=== PATIENT | male | born 1935 | race Caucasian/White ===

== ENCOUNTER 2018-12-21 14:40 | Inpatient (IN) ==
--- NOTE | 2018-12-21 15:07 | ED ---
HPI General Chief complaint: Respiratory Symptoms Stated complaint: Abnormal Labs/Dr Sent Time Seen by Provider: 12/21/18 14:51 Source: patient Mode of arrival: wheelchair Limitations: no limitations History of Present Illness HPI narrative: 83 year old male with a past medical history of COPD, HTN, CHF, CAD s/p CABG x 2 presents to the ED for evaluation of progressively worsening shortness of breath. He states it started about 3 weeks ago and has gotten to the point now where he cannot even walk across a room without struggling to breathe. He reports that his abdomen feels bloated and his legs and feet have been swollen. He denies any pain in the abdomen or chest but states that his chest just feels "tight". He denies chest pain, numbness/tingling, abdominal pain, changes to bowel movements. He states that he takes a water pill daily but feels that often times he cannot pee. He is unaware of a BPH history but says it feels like it takes a long time for him to empty his bladder and that he rarely has a full stream. Patient states taking Coumadin for his atrial fibrillation. Related Data Home Medications Medication Instructions Recorded Confirmed carvedilol 25 mg PO BID 06/19/18 11/30/18 clonazepam 0.5 mg PO DAILY 06/19/18 11/30/18 hydrocodone-acetaminophen 1 tab PO Q6H PRN 06/19/18 11/30/18 losartan 25 mg PO DAILY 06/19/18 11/30/18 magnesium oxide 500 mg PO DAILY 06/19/18 11/30/18 mirtazapine 15 mg PO DAILY 06/19/18 11/30/18 montelukast 10 mg PO DAILY 06/19/18 11/30/18 potassium chloride 20 meq PO DAILY 06/19/18 11/30/18 torsemide 20 mg PO DAILY 06/19/18 11/30/18 trazodone 25 mg PO BID 06/19/18 11/30/18 warfarin 1.5 mg PO DAILY 06/19/18 11/30/18 fluticasone-vilanterol [Breo 1 inh INHALATION DAILY 06/20/18 11/30/18 Ellipta] Allergies Allergy/AdvReac Type Severity Reaction Status Date / Time adhesive Allergy Severe Rash Verified 11/30/18 07:30 Sulfa (Sulfonamide Allergy Severe UNKNOWN Verified 11/30/18 07:30 Antibiotics) Review of Systems ROS: all other systems reviewed are negative [facility] History History Provided By: Patient Medical History Medical History CHF (congestive heart failure) (Acute) HTN (hypertension) (Acute) Pacemaker (Acute) Surgical History Surgical History History of femoropopliteal bypass (Acute) Social History Social History Substance History: No History of Abuse Second Hand Smoke Exposure: No Smoking Status: Former smoker How Often Do You Have a Drink Containing Alcohol: 4 or more times a week Recent Travel in [facility] within the Last 8 Weeks: No Recent Out of Country Travel within the Last 8 Weeks: No Exam Narrative Exam Narrative: GENERAL: Well-appearing but in some mild respiratory distress SKIN: Focused skin assessment warm/dry. HEAD: Atraumatic. Normocephalic. EYES: Pupils equal and round. No scleral icterus. No injection or drainage. ENT: No nasal bleeding or discharge. Mucous membranes pink and moist. Tongue is midline. No Uvula deviation. NECK: Trachea midline. No JVD. CARDIOVASCULAR: Regular rate and rhythm. No murmur appreciated. RESPIRATORY: No accessory muscle use. Rales and crackles are in the lower lung hanson. Breath sounds equal bilaterally. GASTROINTESTINAL: Abdomen soft, non-tender, nondistended. Hepatic and splenic margins not palpable. MUSCULOSKELETAL: No obvious deformities. No clubbing. No cyanosis. Patient does have bilateral lower leg edema of 1 +. 2+ pulses bilaterally. Able to move the upper and lower extremities bilaterally. 2+ pulses bilaterally. NEUROLOGICAL: Awake and alert. No obvious cranial nerve deficits. Motor grossly within normal limits. Normal speech. PSYCHIATRIC: Appropriate mood and affect; insight and judgment normal. Course Initial Documented Vital Signs Temperature 97.3 F L 12/21/18 14:43 Pulse Rate 69 12/21/18 14:43 Respiratory Rate 22 12/21/18 14:43 Blood Pressure 152/71 H 12/21/18 14:43 Pulse Oximetry 91 L 12/21/18 14:43 Last Documented Vital Signs Temperature 97.3 F L 12/21/18 14:43 Pulse Rate 67 12/21/18 15:26 Respiratory Rate 20 12/21/18 15:26 Blood Pressure 157/88 H 12/21/18 15:26 Pulse Oximetry 96 12/21/18 15:26 Medical Decision Making MDM Narrative Medical decision making narrative: 83-year-old male who presents to the ED for evaluation of possible CHF exacerbation. Labs and imaging were ordered. Labs and imaging showed appears to be CHF exacerbation. Positive troponin. Case was discussed with my attending who recommends admission. Case discussed with Dr. Corbett who agrees admission to his service. Patient agrees with admission. Patient was given Lasix here. Medical Screen Exam Complete: Yes Emergency Medical Condition: Yes Differential Diagnosis Differential Diagnosis: Exertional dyspnea versus CHF exacerbation versus CHF versus ACS versus COPD Medical Records Medical records reviewed: Yes I reviewed the patient's medical records. Lab Data Lab results reviewed: Yes I reviewed the patient's lab results. Result diagrams: 12/21/18 15:42 12/21/18 15:42 Lab Results 12/21/18 12/21/18 12/21/18 Range/Units 15:42 15:42 15:42 WBC 6.3 (4.0-11.0) th/mm3 RBC 4.45 L (4.50-5.90) mil/mm3 Hgb 15.1 (13.0-17.0) gm/dL Hct 44.8 (39.0-51.0) % MCV 100.7 H (80.0-100.0) fL MCH 33.9 (27.0-34.0) pg MCHC 33.7 (32.0-36.0) % RDW 16.9 (11.6-17.2) % Plt Count 182 (150-450) th/mm3 MPV 8.8 (7.0-11.0) fL Neut % (Auto) 73.8 H (16.0-70.0) % Lymph % (Auto) 17.3 (9.0-44.0) % [place] % (Auto) 6.9 (0.0-8.0) % Eos % (Auto) 1.1 (0.0-4.0) % Baso % (Auto) 0.9 (0.0-2.0) % Neut # (Auto) 4.6 (1.8-7.7) th/mm3 Lymph # (Auto) 1.1 (1.0-4.8) th/mm3 [place] # (Auto) 0.4 (0.0-0.9) th/mm3 Eos # (Auto) 0.1 (0.0-0.4) th/mm3 Baso # (Auto) 0.1 (0.0-0.2) th/mm3 WBC Differential . Differential Comment Auto diff final PT 21.0 H (9.8-11.6) sec INR 2.1 Ratio APTT (23.4-31.7) sec Sodium 136 (136-145) meq/L Potassium 4.4 (3.5-5.1) meq/L Chloride 98 (98-107) meq/L Carbon Dioxide 34.2 H (21.0-32.0) meq/L Anion Gap 4 L (5-15) meq/L BUN 28 H (7-18) mg/dL Creatinine 1.57 H (0.60-1.30) mg/dL Estimated GFR 43 L (>89) mL/min Random Glucose 108 H (74-106) mg/dL Calcium 8.8 (8.5-10.1) mg/dL Total Bilirubin 0.8 (0.2-1.0) mg/dL AST 19 (15-37) U/L ALT 30 (12-78) U/L Alkaline Phosphatase 89 (45-117) U/L Total Creatine Kinase 25 L (39-308) U/L Troponin I 0.08 H (0.02-0.05) ng/mL B-Natriuretic Peptide (0-100) pg/mL Total Protein 7.4 (6.4-8.2) g/dL Albumin 3.7 (3.4-5.0) g/dL 12/21/18 12/21/18 Range/Units 15:42 15:42 WBC (4.0-11.0) th/mm3 RBC (4.50-5.90) mil/mm3 Hgb (13.0-17.0) gm/dL Hct (39.0-51.0) % MCV (80.0-100.0) fL MCH (27.0-34.0) pg MCHC (32.0-36.0) % RDW (11.6-17.2) % Plt Count (150-450) th/mm3 MPV (7.0-11.0) fL Neut % (Auto) (16.0-70.0) % Lymph % (Auto) (9.0-44.0) % [place] % (Auto) (0.0-8.0) % Eos % (Auto) (0.0-4.0) % Baso % (Auto) (0.0-2.0) % Neut # (Auto) (1.8-7.7) th/mm3 Lymph # (Auto) (1.0-4.8) th/mm3 [place] # (Auto) (0.0-0.9) th/mm3 Eos # (Auto) (0.0-0.4) th/mm3 Baso # (Auto) (0.0-0.2) th/mm3 WBC Differential Differential Comment PT (9.8-11.6) sec INR Ratio APTT 31.1 (23.4-31.7) sec Sodium (136-145) meq/L Potassium (3.5-5.1) meq/L Chloride (98-107) meq/L Carbon Dioxide (21.0-32.0) meq/L Anion Gap (5-15) meq/L BUN (7-18) mg/dL Creatinine (0.60-1.30) mg/dL Estimated GFR (>89) mL/min Random Glucose (74-106) mg/dL Calcium (8.5-10.1) mg/dL Total Bilirubin (0.2-1.0) mg/dL AST (15-37) U/L ALT (12-78) U/L Alkaline Phosphatase (45-117) U/L Total Creatine Kinase (39-308) U/L Troponin I (0.02-0.05) ng/mL B-Natriuretic Peptide 576 H (0-100) pg/mL Total Protein (6.4-8.2) g/dL Albumin (3.4-5.0) g/dL Imaging Data Attestation: I personally reviewed and interpreted this imaging study as follows : Radiologist's impression: Chest X-Ray 12/21/18 15:04 CONCLUSION: 1. Cardiomegaly with pulmonary vascular engorgement. 2. Parenchymal opacity within the medial right lung base could relate to focal edema versus infectious infiltrate. ECG Data Attestation: I personally reviewed and interpreted this ECG as follows: Interpretation: EKG shows sinus rhythm with no sign of acute ischemia read by my attending and myself. Discharge Plan Discharge Disposition Patient Disposition: ED Admit(ED Internal Use Only) Discharge Order Discharge Orders: ED Use Only Admit Order (Routine); Ordered 12/21/18 Ordered By: Joe Perez Discharge Details Diagnosis: Acute exacerbation of CHF (congestive heart failure), Elevated troponin I level Physicians Team ED Provider: Oral Michelle ED Midlevel Provider: Joe Perez Primary Care Provider: Valente Addison Attending Provider: Caleb Corbett Discharge Interventions Interventions: Vital Signs Last Done: 12/21/18 15:26 Status ED Status: Admitted Observation Patient
--- NOTE | 2018-12-21 15:27 | XR ---
EXAM DATE: 12/21/2018 3:21 PM EST AGE/SEX: 83 years / Male INDICATIONS: Chest pain CLINICAL DATA: This is the patient's initial encounter. Patient reports that signs and symptoms have been present for 1 day and indicates a pain score of 0/10. MEDICAL/SURGICAL HISTORY: . Cardiovascular disease. Myocardial infarction. Chronic obstructive pulmonary disease. Congestive heart failure, asthma, Hypertension, diverticulitis . Cholecystecto my. Pacemaker. CABG COMPARISON: POI, XR CHEST PA AND LAT, 12/07/2018. . FINDINGS: A single AP view of the chest demonstrates significant cardiomegaly. Pulmonary vascular engorgement o bserved. A parenchymal opacity is seen within the medial right base. This is new from the prior study . Calcified pleural plaques are seen throughout the chest. No effusion observed. Median sternotomy wi res and left-sided pacing device noted. Old trauma involving the left clavicle. CONCLUSION: 1. Cardiomegaly with pulmonary vascular engorgement. 2. Parenchymal opacity within the medial right lung base could relate to focal edema versus infectio us infiltrate. Electronically signed by: Buddy Castaneda MD Board Certified Radiologist 12/21/2018 3:25 PM EST
[2018-12-21 16:02] LABS: Baso # (Auto) 0.1 th/mm3 (0.0-0.2); Baso % (Auto) 0.9 % (0.0-2.0); Eos # (Auto) 0.1 th/mm3 (0.0-0.4); Eos % (Auto) 1.1 % (0.0-4.0); Hematocrit 44.8 % (39.0-51.0); Hemoglobin 15.1 gm/dL (13.0-17.0); Lymph # (Auto) 1.1 th/mm3 (1.0-4.8); Lymph % (Auto) 17.3 % (9.0-44.0); Mean Corpuscular HGB Conc 33.7 % (32.0-36.0); Mean Corpuscular Hemoglobin 33.9 pg (27.0-34.0); Mean Corpuscular Volume 100.7 fL (80.0-100.0); Mean Platelet Volume 8.8 fL (7.0-11.0); Mono # (Auto) 0.4 th/mm3 (0.0-0.9); Mono % (Auto) 6.9 % (0.0-8.0); Neut # (Auto) 4.6 th/mm3 (1.8-7.7); Neut % (Auto) 73.8 % (16.0-70.0); Platelet Count 182 th/mm3 (150-450); Red Blood Count 4.45 mil/mm3 (4.50-5.90); Red Cell Distribution Width 16.9 % (11.6-17.2); White Blood Count 6.3 th/mm3 (4.0-11.0)
[2018-12-21 16:09] LABS: INR 2.1 Ratio
[2018-12-21 16:24] LABS: Alanine Aminotransferase 30 U/L (12-78); Albumin 3.7 g/dL (3.4-5.0); Anion Gap 4 meq/L (5-15); Aspartate Aminotransferase 19 U/L (15-37); Blood Urea Nitrogen 28 mg/dL (7-18); Calcium 8.8 mg/dL (8.5-10.1); Carbon Dioxide 34.2 meq/L (21.0-32.0); Chloride 98 meq/L (98-107); Glomerular Filtration Rate 43 mL/min (>89); Glucose,Random 108 mg/dL (74-106); Potassium 4.4 meq/L (3.5-5.1); Sodium 136 meq/L (136-145)
[2018-12-21 16:28] LABS: Alkaline Phosphatase 89 U/L (45-117); Total Protein 7.4 g/dL (6.4-8.2); Troponin I 0.08 ng/mL (0.02-0.05)
[2018-12-21 17:02] LABS: Creatine Kinase 25 U/L (39-308)
[2018-12-21] MEDS: Potassium Chloride 10 MEQ ER Capsule PO SCH (20:39)
[2018-12-21] MEDS: traZODone 50 MG Tablet PO SCH (20:39)
--- NOTE | 2018-12-21 21:02 | P.HPIM ---
History of Present Illness Primary Care Physician: Valente Addison DO 83-year-old male with a past medical history significant for CHF, CAD status post CABG, hypertension, hyperlipidemia and COPD (not on home oxygen) came to the emergency department for the evaluation of bilateral lower extremity edema and shortness of breath. The patient's anesthesia associate, Dr. Satya Quinones sent him in for further evaluation. The patient reports he initially started having shortness of breath 3 weeks ago. He reports the shortness of breath is continued to worsen and he can now no longer walk more than 10 steps before having to stop and rest. He endorses worsening bilateral lower extremity and states he has been eating a lot of processed food lately and has not been following his salt restriction. He was seen by his primary care provider who increased his torsemide but yesterday the dosing was decreased again secondary to acute kidney injury. The patient denies any chest pain. No abdominal pain. No nausea/vomiting/diarrhea. No fever/chills. No focal neurologic deficits. Review of Systems Review of Systems: all other systems reviewed are negative [facility] Medical History Medical History CHF (congestive heart failure) (Acute) COPD (chronic obstructive pulmonary disease) (Acute) Coronary artery disease (Acute) HTN (hypertension) (Acute) Hyperlipidemia (Acute) Pacemaker (Acute) Surgical History Surgical History History of cholecystectomy (Acute) History of coronary artery bypass graft (Acute) History of femoropopliteal bypass (Acute) History of repair of hiatal hernia (Acute) Family History Family History Other Coronary artery disease Social History Social History Substance History: No History of Abuse Second Hand Smoke Exposure: No Smoking Status: Former smoker How Often Do You Have a Drink Containing Alcohol: 4 or more times a week Recent Travel in [facility] within the Last 8 Weeks: No Recent Out of Country Travel within the Last 8 Weeks: No Immunization History Tetanus Immunization: Unsure Medications and Allergies Allergies Allergy/AdvReac Type Severity Reaction Status Date / Time adhesive Allergy Severe Rash Verified 11/30/18 07:30 Sulfa (Sulfonamide Allergy Severe UNKNOWN Verified 11/30/18 07:30 Antibiotics) Home Medications Medication Instructions Recorded Confirmed Type carvedilol 25 mg PO BID 06/19/18 12/21/18 History clonazepam 0.5 mg PO DAILY 06/19/18 12/21/18 History hydrocodone-acetaminophen 1 tab PO Q6H PRN 06/19/18 12/21/18 History losartan 25 mg PO DAILY 06/19/18 12/21/18 History magnesium oxide 500 mg PO DAILY 06/19/18 12/21/18 History mirtazapine 30 mg PO HS 06/19/18 12/21/18 History montelukast 10 mg PO DAILY 06/19/18 12/21/18 History potassium chloride 20 meq PO DAILY 06/19/18 12/21/18 History torsemide 20 mg PO DAILY 06/19/18 12/21/18 History trazodone 12.5 mg PO BID 06/19/18 12/21/18 History warfarin 1 mg PO DAILY 06/19/18 12/21/18 History fluticasone-vilanterol [Breo 1 inh INHALATION DAILY 06/20/18 12/21/18 History Ellipta] Active Medications: Active Medications Hydrocodone Bitart/Acetaminophen ([place] 5/325) 1 tab PO Q6H PRN PRN Reason: Pain 1-10 Bumetanide (Bumex Inj) 1 mg IV.PUSH BID@0900,1800 [facility] Clonazepam (Klonopin) 0.5 mg PO DAILY [facility] Fluticasone/Vilanterol (Breo Ellipta 200/25 Mcg Inh) 1 puff INH DAILY [facility] Losartan Potassium (Cozaar) 25 mg PO DAILY [facility] Potassium Chloride (Kcl) 10 meq PO BID [facility] Last Admin: 12/21/18 20:39 Dose: 10 meq Sodium Chloride (Ns Flush) 2 ml IV.FLUSH UNSCH PRN PRN Reason: FLUSH AFTER USING IV ACCESS Sodium Chloride (Ns Flush) 2 ml IV.FLUSH BID [facility] Last Admin: 12/21/18 20:40 Dose: 2 ml Trazodone HCl (Desyrel) 25 mg PO BID [facility] Last Admin: 12/21/18 20:39 Dose: 25 mg Warfarin Sodium (Coumadin) 1.5 mg PO DAILY [facility] Physical Exam Vital signs: Vital Signs 12/21/18 14:43 12/21/18 15:04 12/21/18 15:26 Temperature 97.3 F L Pulse Rate 69 67 Respiratory Rate 22 20 Blood Pressure 152/71 H 157/88 H Pulse Oximetry 91 L 95 96 12/21/18 17:32 Temperature Pulse Rate 60 Respiratory Rate 16 Blood Pressure 144/84 H Pulse Oximetry 94 L Intake & Output 12/21/18 12/21/18 12/22/18 06:59 18:59 06:59 Output Total 700 / 700 Balance -700 / -700 Weight 95.26 kg 95.26 kg Output: Urine 700 / 700 Other: Weight On Admission 95.26 kg Narrative: Gen.: No acute distress Head: Normocephalic. Atraumatic. EENT: Pupils equal round and reactive to light. Nose without drainage. Airway intact. Throat without injection. Cardiovascular: Regular rate and rhythm. No murmurs, rubs or gallops. Respiratory: Crackles in the bases Abdomen: Soft, nontender, nondistended. No peritoneal signs. Musculoskeletal: 2+ bilateral pitting lower extremity edema Skin: No obvious rashes or erythema. Neuro: Sensory and motor grossly intact. Cranial nerves II through XII grossly intact. Results Labs CBC & Chem 7: 12/21/18 15:42 12/21/18 15:42 Imaging Impressions Chest X-Ray 12/21/18 15:04 CONCLUSION: 1. Cardiomegaly with pulmonary vascular engorgement. 2. Parenchymal opacity within the medial right lung base could relate to focal edema versus infectious infiltrate. Caprini VTE Risk Assessment Caprini VTE Risk Assessment: Moderate/High Risk (score >= 2) Caprini Risk Assessment Model: Point Value = 1 Point Value = 2 Point Value = 3 Point Value = 5 Age 41-60 Minor surgery BMI > 25 kg/m2 Swollen legs Varicose veins or History of unexplained or recurrent spontaneous Oral contraceptives or hormone replacement Sepsis (< 1 month) Serious lung disease, including pneumonia (< 1 month) Abnormal pulmonary function Acute myocardial infarction Congestive heart failure (< 1 month) History of inflammatory bowel disease Medical patient at bed rest Age 61-74 Arthroscopic surgery Major open surgery (> 45 min) Laparoscopic surgery (> 45 min) Malignancy Confined to bed (> 72 hours) Immobilizing plaster cast Central venous access Age >= 75 History of VTE Family history of VTE Factor V Leiden Prothrombin [id number] Lupus anticoagulant Anticardiolipin antibodies Elevated serum homocysteine Heparin-induced thrombocytopenia Other congenital or acquired thrombophilia Stroke (< 1 month) Elective arthroplasty Hip, pelvis, or leg fracture Acute spinal cord injury (< 1 month) Prophylaxis Regimen: Total Risk Factor Score Risk Level Prophylaxis Regimen 0-1 Low Early ambulation 2 Moderate Order ONE of the following: *Sequential Compression Device (SCD) *Heparin 5000 units SQ BID 3-4 Higher Order ONE of the following medications: *Heparin 5000 units SQ TID *Enoxaparin/Lovenox 40 mg SQ daily (WT < 150 kg, CrCl > 30 mL/min) *Enoxaparin/Lovenox 30 mg SQ daily (WT < 150 kg, CrCl > 10-29 mL/min) *Enoxaparin/Lovenox 30 mg SQ BID (WT < 150 kg, CrCl > 30 mL/min) AND/OR *Sequential Compression Device (SCD) 5 or more Highest Order ONE of the following medications: *Heparin 5000 units SQ TID (Preferred with Epidurals) *Enoxaparin/Lovenox 40 mg SQ daily (WT < 150 kg, CrCl > 30 mL/min) *Enoxaparin/Lovenox 30 mg SQ daily (WT < 150 kg, CrCl > 10-29 mL/min) *Enoxaparin/Lovenox 30 mg SQ BID (WT < 150 kg, CrCl > 30 mL/min) AND *Sequential Compression Device (SCD) Assessment and Plan Plan Assessment/plan: 1. CHF exacerbation IV Bumex Supplemental oxygen as needed Patient's anesthesia associate consulted, appreciate assistance Monitor renal function in setting of acute kidney injury 2. Acute kidney injury Creatinine 1.57 Baseline unknown Monitor closely in the setting of diuresis 3. Atrial fibrillation Continue Coreg Continue anticoagulation with Coumadin INR 2.1 4. Hypertension/hyperlipidemia/coronary artery disease Continue home medications FEN Heart healthy diet with fluid restriction Electrolytes: Monitor and replete as needed Warfarin H&P: Quality VTE Deep Vein Thrombosis/Pulmonary Embolism Present on Admission: No
[2018-12-21] MEDS: Mirtazapine 15 MG Tablet PO SCH (23:29)
[2018-12-21] MEDS: Carvedilol 12.5 MG Tablet PO SCH (23:29)
[2018-12-22 08:02] LABS: Calcium 8.6 mg/dL (8.5-10.1); Carbon Dioxide 31.1 meq/L (21.0-32.0); Potassium 4.2 meq/L (3.5-5.1)
[2018-12-22] MEDS: Carvedilol 12.5 MG Tablet PO SCH ×2 (08:21→21:01)
[2018-12-22] MEDS: Potassium Chloride 10 MEQ ER Capsule PO SCH ×2 (08:21→21:02)
[2018-12-22] MEDS: clonazePAM 0.5 MG Tablet PO SCH (08:22)
[2018-12-22] MEDS: traZODone 50 MG Tablet PO SCH ×2 (08:23→21:01)
--- NOTE | 2018-12-22 12:53 | P.CONCA ---
History of Present Illness Service: Cardiology Consult date: 12/22/18 Requesting Physician: Caleb Corbett Reason for Consult: CHF, elevated troponin levels. Primary Care Provider: Valente Addison DO History of Present Illness: This is a 83-year-old male known to Dr. Saavedra with a past medical history of ASHD, CABG w/redo, [employer]ot[employer] ICD, CHF, ischemic cardiomyopathy, atrial fibrillation, ventricular tachycardia, hyperlipidemia, hypertension, COPD , asbestos exposure, diverticulitis with GI bleed and dyspnea on exertion. He was evaluated at Dr. Saavedra's office for an increase in lower extremity edema and shortness of breath X 3 weeks. After evaluation in the office, he was taken down to the Emergency department for further evaluation and treatment. He states that over the past 3 weeks he has been unable to ambulate more than 10 steps without stopping to catch his breath. He also noticed that the swelling in his lower extremities had worsened. He admitted to eating more processed foods and not sticking to his no salt diet. He denied any CP, pressure or palpitations during the above time frame. Currently, he denies any CP, pressure , palpitations or dizziness. He does complain of SOB with activity and lower extremity edema. The troponin level was 0.08 and now is 0.07. 12 lead EKG show atrial fibrillation with intermittent pacing. Echo on 11/25 showed an EF 50%, LVH , MAC, aortic cusp calcification, ICD wire RT heart, trace AI, mild MR, mild TR , trace PI. PET scan on 12/08/17 was negative for ischemia, low risk study. Review of Systems All other systems reviewed negative except as stated in HPI PMF - History History Provided By: Patient - Medical History Medical History: Medical History (Last Reviewed 12/22/18 @ 08:54 by Sydni Simmons) CHF (congestive heart failure) COPD (chronic obstructive pulmonary disease) Coronary artery disease HTN (hypertension) Hyperlipidemia Pacemaker - Surgical History Surgical History: Surgical History (Last Reviewed 12/22/18 @ 08:54 by Sydni Simmons) History of cholecystectomy History of coronary artery bypass graft History of femoropopliteal bypass History of repair of hiatal hernia - Family History Family History: Family History (Last Reviewed 12/22/18 @ 08:54 by Sydni Simmons) Other Coronary artery disease - Tobacco History Second Hand Smoke Exposure: No Tobacco Use In Past 30 Days: No Smoking Status: Former smoker - Alcohol History How Often Do You Have a Drink Containing Alcohol: 4 or more times a week - Substance Use History Substance History: No History of Abuse - Travel History Recent Travel in the [place] Within the Last 8 Weeks: No Recent Travel Out of the Country Within the Last 8 Weeks: No - Immunization History Tetanus Immunization: Unsure Medications and Allergies Allergies Allergy/AdvReac Type Severity Reaction Status Date / Time adhesive Allergy Severe Rash Verified 11/30/18 07:30 Sulfa (Sulfonamide Allergy Severe UNKNOWN Verified 11/30/18 07:30 Antibiotics) Home Medications Medication Instructions Recorded Confirmed Type carvedilol 25 mg PO BID 06/19/18 12/21/18 History clonazepam 0.5 mg PO DAILY 06/19/18 12/21/18 History hydrocodone-acetaminophen 1 tab PO Q6H PRN 06/19/18 12/21/18 History losartan 25 mg PO DAILY 06/19/18 12/21/18 History magnesium oxide 500 mg PO DAILY 06/19/18 12/21/18 History mirtazapine 30 mg PO HS 06/19/18 12/21/18 History montelukast 10 mg PO DAILY 06/19/18 12/21/18 History potassium chloride 20 meq PO DAILY 06/19/18 12/21/18 History torsemide 20 mg PO DAILY 06/19/18 12/21/18 History trazodone 12.5 mg PO BID 06/19/18 12/21/18 History warfarin 1 mg PO DAILY 06/19/18 12/21/18 History fluticasone-vilanterol [Breo 1 inh INHALATION DAILY 06/20/18 12/21/18 History Ellipta] Active Medications: Active Medications Hydrocodone Bitart/Acetaminophen ([place] 5/325) 1 tab PO Q6H PRN PRN Reason: Pain 1-10 Bumetanide (Bumex Inj) 1 mg IV.PUSH BID@0900,1800 [facility] Last Admin: 12/22/18 08:23 Dose: 1 mg Carvedilol (Coreg) 25 mg PO BID [facility] Last Admin: 12/22/18 08:21 Dose: 25 mg Clonazepam (Klonopin) 0.5 mg PO DAILY [facility] Last Admin: 12/22/18 08:22 Dose: 0.5 mg Fluticasone/Vilanterol (Breo Ellipta 200/25 Mcg Inh) 1 puff INH DAILY [facility] Last Admin: 12/22/18 08:20 Dose: 1 puff Mirtazapine (Remeron) 30 mg PO HS [facility] Last Admin: 12/21/18 23:29 Dose: 30 mg Potassium Chloride (Kcl) 10 meq PO BID [facility] Last Admin: 12/22/18 08:21 Dose: 10 meq Sodium Chloride (Ns Flush) 2 ml IV.FLUSH UNSCH PRN PRN Reason: FLUSH AFTER USING IV ACCESS Sodium Chloride (Ns Flush) 2 ml IV.FLUSH BID [facility] Last Admin: 12/22/18 08:25 Dose: 2 ml Trazodone HCl (Desyrel) 25 mg PO BID [facility] Last Admin: 12/22/18 08:23 Dose: 25 mg Warfarin Sodium (Coumadin) 1.5 mg PO DAILY [facility] Last Admin: 12/22/18 08:22 Dose: 1.5 mg Exam Vital signs: Vital Signs 12/21/18 14:43 12/21/18 15:04 12/21/18 15:26 Temperature 97.3 F L Pulse Rate 69 67 Respiratory Rate 22 20 Blood Pressure 152/71 H 157/88 H Pulse Oximetry 91 L 95 96 12/21/18 17:32 12/21/18 20:00 12/21/18 21:45 Temperature 97.6 F Pulse Rate 60 68 61 Respiratory Rate 16 16 Blood Pressure 144/84 H 104/51 L Pulse Oximetry 94 L 91 L 12/21/18 23:26 12/22/18 03:00 12/22/18 03:43 Temperature 98.9 F 98.9 F Pulse Rate 60 59 L 73 Respiratory Rate 16 16 Blood Pressure 114/59 L 97/55 L Pulse Oximetry 92 L 90 L 12/22/18 08:00 12/22/18 12:00 Temperature 98.4 F Pulse Rate 64 67 Respiratory Rate 16 16 Blood Pressure 146/60 H 93/53 L Pulse Oximetry 93 L 93 L Intake & Output 12/21/18 12/22/18 12/22/18 18:59 06:59 18:59 Intake Total 222 / 222 Output Total 700 / 700 500 / 500 150 / 150 Balance -700 / -700 -278 / -278 -150 / -150 Weight 95.26 kg 95.26 kg Intake: Oral 222 / 222 Output: Urine 700 / 700 500 / 500 150 / 150 Other: Date of Last Bowel Movement 12/21/18 12/21/18 # Bowel Movements 1 Weight On Admission 95.26 kg - Constitutional no acute distress - Routine HEENT Exam Head: Present: normocephalic Eye: Present: PERRL ENT: Present: mucous membranes moist - Routine Neck Exam Present: full ROM - Routine Respiratory Exam Present: CTA bilaterally, distant breath sounds - Routine Cardiovascular Exam Present: S1, S2, irregular rhythm Comments: atrial fibrillation with intermittent pacing - Routine Abdominal Exam Present: normoactive bowel sounds - Routine Extremities Exam Present: edema, full ROM, pulses intact, normal capillary refill. Absent: cyanosis, clubbing - Routine Skin Exam Present: intact - Routine Neurological Exam Present: oriented X3 Results 12/21/18 15:42 12/22/18 06:16 Cardiac Enzymes 12/21/18 12/21/18 12/21/18 Range/Units 15:42 15:42 20:50 AST 19 (15-37) U/L Troponin I 0.08 H 0.07 H (0.02-0.05) ng/mL B-Natriuretic Peptide 576 H (0-100) pg/mL Coagulation 12/21/18 12/21/18 12/21/18 Range/Units 15:42 15:42 15:42 PT 21.0 H (9.8-11.6) sec APTT 31.1 (23.4-31.7) sec B-Natriuretic Peptide 576 H (0-100) pg/mL CBC 12/21/18 Range/Units 15:42 WBC 6.3 (4.0-11.0) th/mm3 RBC 4.45 L (4.50-5.90) mil/mm3 Hgb 15.1 (13.0-17.0) gm/dL Hct 44.8 (39.0-51.0) % Plt Count 182 (150-450) th/mm3 Neut # (Auto) 4.6 (1.8-7.7) th/mm3 Lymph # (Auto) 1.1 (1.0-4.8) th/mm3 Yancey # (Auto) 0.4 (0.0-0.9) th/mm3 Eos # (Auto) 0.1 (0.0-0.4) th/mm3 Baso # (Auto) 0.1 (0.0-0.2) th/mm3 Comprehensive Metabolic Panel 12/21/18 12/22/18 Range/Units 15:42 06:16 Sodium 136 140 (136-145) meq/L Potassium 4.4 4.2 (3.5-5.1) meq/L Chloride 98 102 (98-107) meq/L Carbon Dioxide 34.2 H 31.1 (21.0-32.0) meq/L BUN 28 H 33 H (7-18) mg/dL Creatinine 1.57 H 1.49 H (0.60-1.30) mg/dL Calcium 8.8 8.6 (8.5-10.1) mg/dL AST 19 (15-37) U/L ALT 30 (12-78) U/L Alkaline Phosphatase 89 (45-117) U/L Total Protein 7.4 (6.4-8.2) g/dL Albumin 3.7 (3.4-5.0) g/dL Intake and Output 12/21/18 12/22/18 12/22/18 22:59 06:59 14:59 Intake Total 222 / 222 Output Total 1200 / 1200 150 / 150 Balance -978 / -978 -150 / -150 Intake: Oral 222 / 222 Output: Urine 1200 / 1200 150 / 150 Other: Date of Last Bowel Movement 12/21/18 12/21/18 # Bowel Movements 1 Weight 95.26 kg Weight On Admission 95.26 kg - Imaging and Cardiology Imaging: Impressions Chest X-Ray 12/21/18 15:04 CONCLUSION: 1. Cardiomegaly with pulmonary vascular engorgement. 2. Parenchymal opacity within the medial right lung base could relate to focal edema versus infectious infiltrate. Assessment and Plan - Assessment (1) Acute exacerbation of CHF (congestive heart failure) Code(s): I50.9 - Heart failure, unspecified Status: Acute (2) Elevated troponin I level Code(s): R74.8 - Abnormal levels of other serum enzymes Status: Acute (3) Acute renal insufficiency Code(s): N28.9 - Disorder of kidney and ureter, unspecified Status: Acute (4) History of coronary artery bypass graft Code(s): Z95.1 - Presence of aortocoronary bypass graft Status: Acute (5) History of implantable cardiac defibrillator (ICD) Status: Acute - Plan Troponin levels are not trending and EKG shows no acute process. There are no signs of acute coronary syndrome at this time. Continue current treatment for CHF with IV Bumex and Coreg. Continue to monitor renal function. Continue to monitor the patient on telemetry. We will continue to monitor the patient during his hospitalization. He is to follow up with his primary knot picker cloth, Dr. Saavedra, after discharge from the hospital. The patient was seen and evaluated by Dr. Pugh who participated in care, management and decision making. - Attending Attestation Patient seen and examined. I reviewed and agree with the evaluation and plan as presented. Still grossly fluid overloaded. Continue diuresis, closely monitor renal function. Nephrology evaluation. Increase activity. F/u w Dr. Saavedra as outpatient. (1) Acute exacerbation of CHF (congestive heart failure) Qualifiers: Heart failure type: unspecified Qualified Code(s): I50.9 - Heart failure, unspecified
--- NOTE | 2018-12-22 15:25 | ECG ---
Date Performed: 12/21/2018 Time Performed: 15:34:05 PTAGE: 83 years EKG: Supraventricular rhythm of uncertain mechanism, but the finding is most consistent with atr ial fibrillation and a controlled ventricular response. Right bundle branch block Intermittent VVI pa cing Nonspecific, but prominent ST-T wave changes, the anterolateral leads most likely related to the RBBB, but myocardial ischemia cannot be excluded, as the intermittent VVI pacing makes it difficult to directly compare to the prior tracing. The patient was previously noted to be in atrial fibrillati on, so I believe the present rhythm is also atrial fibrillation. ABNORMAL ECG PREVIOUS TRACING : 07/13/2015 18.16 DOCTOR: Lizzy Ragland Interpretating Date/Time 12/22/2018 15:23:42
--- NOTE | 2018-12-22 17:18 | ECHRPT ---
Indication: Heart Failure CONCLUSIONS Normal left ventricular size. Wall thickness is normal. The left ventricular systolic function is moderately reduced with an estimated ejection fraction in the range of 40-45%. Mitral annular calcification is present. Trace mitral valve regurgitation. Aortic valve sclerosis is present. mean gradient = 14 mm hg c/w mild stenosis The estimated pulmonary arterial pressure is 32mmHg. Mild pulmonary valve regurgitation. pacer wire seen in RV BP: / HR: Rhythm: Technical Quality: FINDINGS LEFT VENTRICLE Normal left ventricular size. Wall thickness is normal. The left ventricular systolic function is moderately reduced with an estimated ejection fraction in the range of 40-45%. RIGHT VENTRICLE The right ventricular systoilc function is moderately decreased. LEFT ATRIUM The left atrial size is normal. RIGHT ATRIUM The right atrial size is normal. ATRIAL SEPTUM Normal atrial septal thickness without atrial level shunting by limited color doppler interrogation. AORTA The aortic root and proximal ascending aorta are normal in size on limited imaging. MITRAL VALVE Mitral annular calcification is present. Trace mitral valve regurgitation. AORTIC VALVE Aortic valve sclerosis is present. TRICUSPID VALVE The estimated pulmonary arterial pressure is 32mmHg. PULMONARY VALVE Mild pulmonary valve regurgitation. VESSELS The inferior vena cava is normal in size. PERICARDIUM No pericardial effusion. Serg Ordaz MD, FACC, FSCAI (Electronically Signed) Final Date:22 December 2018 17:16
--- NOTE | 2018-12-22 18:13 | P.PNIM ---
Subjective Interval history: Follow-up visit CHF exacerbation Patient seen and examined while resting in bed. Patient reports slight improvement in shortness of breath and significant improvement in his bilateral lower extremity edema. No chest pain, palpitations, abdominal pain, fevers or chills. Reports a mild nonproductive cough. Physical Exam Vital signs: Vital Signs 12/21/18 20:00 12/21/18 21:45 12/21/18 23:26 Temperature 97.6 F 98.9 F Pulse Rate 68 61 60 Respiratory Rate 16 16 Blood Pressure 104/51 L 114/59 L Pulse Oximetry 91 L 92 L 12/22/18 03:00 12/22/18 03:43 12/22/18 08:00 Temperature 98.9 F 98.4 F Pulse Rate 59 L 73 64 Respiratory Rate 16 16 Blood Pressure 97/55 L 146/60 H Pulse Oximetry 90 L 93 L 12/22/18 12:00 Temperature Pulse Rate 67 Respiratory Rate 16 Blood Pressure 93/53 L Pulse Oximetry 93 L Intake & Output 12/21/18 12/22/18 12/22/18 18:59 06:59 18:59 Intake Total 222 / 222 Output Total 700 / 700 500 / 500 150 / 150 Balance -700 / -700 -278 / -278 -150 / -150 Weight 95.26 kg 95.26 kg Intake: Oral 222 / 222 Output: Urine 700 / 700 500 / 500 150 / 150 Other: Date of Last Bowel Movement 12/21/18 12/21/18 # Bowel Movements 1 Weight On Admission 95.26 kg Narrative: Gen.: No acute distress Head: Normocephalic. Atraumatic. EENT: Pupils equal round and reactive to light. Nose without drainage. Airway intact. Throat without injection. Cardiovascular: Regular rate and rhythm. No murmurs, rubs or gallops. Respiratory: Crackles in the bases Abdomen: Soft, nontender, nondistended. No peritoneal signs. Musculoskeletal: 2+ bilateral pitting lower extremity edema Skin: No obvious rashes or erythema. Neuro: Sensory and motor grossly intact. Cranial nerves II through XII grossly intact. Results Labs CBC & Chem 7: 12/21/18 15:42 12/22/18 06:16 Assessment and Plan (1) Acute exacerbation of CHF (congestive heart failure): Code(s): I50.9 - Heart failure, unspecified Status: Acute (2) Elevated troponin I level: Code(s): R74.8 - Abnormal levels of other serum enzymes Status: Acute (3) Acute renal insufficiency: Code(s): N28.9 - Disorder of kidney and ureter, unspecified Status: Acute (4) History of coronary artery bypass graft: Code(s): Z95.1 - Presence of aortocoronary bypass graft Status: Acute (5) History of implantable cardiac defibrillator (ICD): Status: Acute Plan 83-year-old male with a past medical history significant for CHF, CAD status post CABG, hypertension, hyperlipidemia and COPD (not on home oxygen) came to the emergency department for the evaluation of bilateral lower extremity edema and shortness of breath. CHF exacerbation -continue IV Bumex -Supplemental oxygen as needed -Patient's manager discovery consulted, appreciate assistance -monitor renal function in setting of acute kidney injury, monitor electrolytes Acute kidney injury -Creatinine 1.57->1.49 -Baseline unknown -Monitor closely in the setting of diuresis Atrial fibrillation -Continue Coreg -Continue anticoagulation with Coumadin -INR 2.1 Hypertension/hyperlipidemia/coronary artery disease Continue home medications MDM: self Code: Full GI ppx: not indicated DVT ppx: Coumadin Discussed with: RN, patient, supervising MD Dispo: Home vs Home with HH Progress Note: Quality VTE Deep Vein Thrombosis/Pulmonary Embolism Present on Admission: No _ (1) Acute exacerbation of CHF (congestive heart failure) Qualifiers: Heart failure type: unspecified Qualified Code(s): I50.9 - Heart failure, unspecified
[2018-12-22] MEDS: Mirtazapine 15 MG Tablet PO SCH (21:02)
[2018-12-23] MEDS: clonazePAM 0.5 MG Tablet PO SCH (09:37)
[2018-12-23] MEDS: traZODone 50 MG Tablet PO SCH ×2 (09:42→21:09)
[2018-12-23] MEDS: Potassium Chloride 10 MEQ ER Capsule PO SCH ×2 (09:42→21:09)
[2018-12-23] MEDS: Carvedilol 12.5 MG Tablet PO SCH ×2 (09:42→21:08)
[2018-12-23] MEDS ORDERED: Acetaminophen 325 MG Tablet PO PRN (13:38)
--- NOTE | 2018-12-23 17:47 | P.PNIM ---
Subjective Interval history: 83-year-old gentleman admitted with acute exacerbation of CHF , shortness of breath and cough, lower extremity edema worsening, with worsening renal function. Patient seen and examined, denies any chest pain, states he is having more cough this not really productive today, denies chest pain, states is not urinating as much as he was at Physical Exam Vital signs: Vital Signs 12/22/18 20:00 12/23/18 00:00 12/23/18 00:20 Temperature 97.9 F 98.1 F Pulse Rate 73 67 62 Respiratory Rate 18 18 Blood Pressure 125/63 106/52 L Pulse Oximetry 92 L 92 L 12/23/18 04:00 12/23/18 04:08 12/23/18 08:00 Temperature 98.2 F 98.4 F Pulse Rate 71 66 70 Respiratory Rate 17 20 Blood Pressure 90/54 L 125/66 Pulse Oximetry 92 L 94 L 12/23/18 12:00 12/23/18 16:00 Temperature 98 F 98 F Pulse Rate 65 69 Respiratory Rate 20 18 Blood Pressure 95/56 L 102/54 L Pulse Oximetry 95 94 L Intake & Output 12/22/18 12/23/18 12/23/18 18:59 06:59 18:59 Intake Total 240 / 240 Output Total 150 / 150 325 / 325 Balance -150 / -150 -85 / -85 Weight 92.1 kg 93.1 kg Intake: Oral 240 / 240 Output: Urine 150 / 150 325 / 325 Other: Date of Last Bowel Movement 12/21/18 12/22/18 12/22/18 Narrative: Well-developed well-nourished 83-year-old white male Awake alert oriented no acute distress sitting up in chair on room air Heart S1-S2 regular Lungs with crackles at base with fair air movement no wheeze no rhonchi Abdomen obese soft nondistended positive bowel sounds Extremities +2 tight edema chronic hyperemic discoloration Results Labs CBC & Chem 7: 12/21/18 15:42 12/22/18 06:16 Assessment and Plan (1) Acute exacerbation of CHF (congestive heart failure): Code(s): I50.9 - Heart failure, unspecified Status: Acute (2) Elevated troponin I level: Code(s): R74.8 - Abnormal levels of other serum enzymes Status: Acute (3) Acute renal insufficiency: Code(s): N28.9 - Disorder of kidney and ureter, unspecified Status: Acute (4) History of coronary artery bypass graft: Code(s): Z95.1 - Presence of aortocoronary bypass graft Status: Acute (5) History of implantable cardiac defibrillator (ICD): Status: Acute Plan ACUTE EXACERBATION OF CHRONIC SYSTOLIC CHF - iv diuresis, strict i/o, daily weights, cardio following 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 - cont coreg, arb, not on entresto fu w cardio TROPONIN elevation trace likely due to above ,no acute mi - cont asa AFIB - chronic on coumadin, consult pharm to dose, cont rate control RML opacity on cxr concerning for pna vs chf - fu cxr, clinically no pna, hold abx for now, cont pulm tx, is, monitor for fever CASTRO on CKD - creat improved ,cont i/os and diuesis as tolerated COPD - stable nebs prn HTN - cont bp control as [place] DYSLIPIDEMIA - should be on statin? fu his fasting lipids in am PVD p fempop - asa statin? on coumadin dvt prophylaxis coumadin, inr 2.1, dispo - home when stable. Progress Note: Quality VTE Deep Vein Thrombosis/Pulmonary Embolism Present on Admission: No _ (1) Acute exacerbation of CHF (congestive heart failure) Qualifiers: Heart failure type: unspecified Qualified Code(s): I50.9 - Heart failure, unspecified
[2018-12-23] MEDS ORDERED: Warfarin Consult Pharmacy OTHER PRN (17:59)
[2018-12-23] MEDS: Mirtazapine 15 MG Tablet PO SCH (21:09)
[2018-12-24] MEDS: Carvedilol 12.5 MG Tablet PO SCH ×2 (08:57→21:43)
[2018-12-24] MEDS: traZODone 50 MG Tablet PO SCH ×2 (08:57→21:43)
[2018-12-24] MEDS: Potassium Chloride 10 MEQ ER Capsule PO SCH ×2 (09:00→21:43)
[2018-12-24 11:19] LABS: Calcium 8.7 mg/dL (8.5-10.1); Carbon Dioxide 33.6 meq/L (21.0-32.0); Potassium 4.2 meq/L (3.5-5.1)
[2018-12-24 11:21] LABS: Chol/HDL Ratio 6.43 Ratio; HDL Cholesterol 35.6 mg/dL (40.0-60.0)
[2018-12-24] MEDS ORDERED: Benzonatate 100 MG Capsule PO PRN (13:52)
[2018-12-24] MEDS ORDERED: MethylPREDNISolone Sod Succinate Inj 40 MG/ML Vial IV.PUSH ONE (14:00)
--- NOTE | 2018-12-24 15:41 | P.PNIM ---
Subjective Interval history: 83-year-old gentleman admitted with acute CHF exacerbation, acute kidney injury Patient seen and examined, states he had a rough night with severe cough, and desaturated overnight with O2 sats in the 80s now on oxygen, states he started to urinate a lot more. Physical Exam Vital signs: Vital Signs 12/23/18 16:00 12/23/18 20:00 12/23/18 20:01 Temperature 98 F 97.7 F Pulse Rate 69 68 72 Respiratory Rate 18 16 Blood Pressure 102/54 L 117/59 L Pulse Oximetry 94 L 91 L 12/23/18 20:21 12/23/18 23:53 12/24/18 00:00 Temperature 98 F Pulse Rate 73 81 65 Respiratory Rate 18 18 Blood Pressure 106/57 L Pulse Oximetry 93 L 12/24/18 04:00 12/24/18 04:04 12/24/18 06:00 Temperature 98.4 F Pulse Rate 70 76 Respiratory Rate 16 Blood Pressure 99/58 L Pulse Oximetry 95 95 12/24/18 08:00 12/24/18 12:00 12/24/18 12:35 Temperature 98.6 F 98.3 F Pulse Rate 61 61 61 Respiratory Rate 16 16 Blood Pressure 84/54 L 91/64 L Pulse Oximetry 92 L 97 Intake & Output 12/23/18 12/24/18 12/24/18 18:59 06:59 18:59 Intake Total 360 / 360 240 / 240 Output Total 600 / 600 400 / 400 Balance -240 / -240 -160 / -160 Weight 92.6 kg Intake: Oral 360 / 360 240 / 240 Output: Urine 600 / 600 400 / 400 Other: Date of Last Bowel Movement 12/22/18 12/23/18 12/23/18 # Bowel Movements 1 Narrative: Well-developed well-nourished 83-year-old white male Awake alert oriented no acute distress sitting up in chair on room air Heart S1-S2 regular Lungs with crackles at bases better with coarse rhonchi and wheeze left lung Abdomen obese soft nondistended positive bowel sounds Extremities +2 tight edema chronic hyperemic discoloration slight improvement Results Labs CBC & Chem 7: 12/21/18 15:42 12/24/18 09:51 Assessment and Plan (1) Acute exacerbation of CHF (congestive heart failure): Code(s): I50.9 - Heart failure, unspecified Status: Acute (2) Elevated troponin I level: Code(s): R74.8 - Abnormal levels of other serum enzymes Status: Acute (3) Acute renal insufficiency: Code(s): N28.9 - Disorder of kidney and ureter, unspecified Status: Acute (4) History of coronary artery bypass graft: Code(s): Z95.1 - Presence of aortocoronary bypass graft Status: Acute (5) History of implantable cardiac defibrillator (ICD): Status: Acute Plan ACUTE EXACERBATION OF CHRONIC SYSTOLIC CHF - iv diuresis, strict i/o, daily weights, cardio following, better 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 - cont coreg, arb, not on entresto fu w cardio TROPONIN elevation trace likely due to above ,no acute mi - cont asa AFIB - chronic on coumadin, consult pharm to dose, cont rate control RML opacity on cxr concerning for pna vs chf - fu cxr, clinically now having cough and congestion, rhonchi now audible on R, will start abx, and give a dose of steroid for bronchospasm/copd and fu cxr today., CASTRO on CKD - creat improved ,cont i/os and diuesis as tolerated COPD - w mild bronchospasm, burst of streroid today, nebs bid and prn, cont home breo HTN - cont bp control as [place] DYSLIPIDEMIA - statin, PVD p fempop - asa statin?, on coumadin dvt prophylaxis coumadin, inr 2.1, dispo - home when stable. Progress Note: Quality VTE Deep Vein Thrombosis/Pulmonary Embolism Present on Admission: No _ (1) Acute exacerbation of CHF (congestive heart failure) Qualifiers: Heart failure type: unspecified Qualified Code(s): I50.9 - Heart failure, unspecified
[2018-12-24] MEDS: clonazePAM 0.5 MG Tablet PO SCH (16:10)
--- NOTE | 2018-12-24 16:25 | XR ---
EXAM DATE: 12/24/2018 4:08 PM EST AGE/SEX: 83 years / Male INDICATIONS: . Shortness of breath. CLINICAL DATA: This is the patient's initial encounter. Patient reports that signs and symptoms have been present for 1 day and indicates a pain score of 3/10. MEDICAL/SURGICAL HISTORY: . Cardiovascular disease. Myocardial infarction. Chronic obstructive pulmonary disease. Congestive heart failure, asthma, Hypertension, diverticulitis. . Cholecystectomy . Pacemaker. CABG. COMPARISON: [facility], XR CHEST PA AND LAT, 07/13/2018. . FINDINGS: Cardiomegaly. Pacer lead overlies right ventricle. Pleural calcifications present. Subsegmental basil ar opacity, probably chronic atelectasis and scarring. CONCLUSION: Cardiomegaly. Asbestos pleural disease with chronic atelectasis and scarring at the bases similar to prior chest radiographs. No new infiltrate. Electronically signed by: Chad Neil MD Board Certified Radiologist 12/24/2018 4:24 PM EST
[2018-12-24] MEDS: Mirtazapine 15 MG Tablet PO SCH (21:42)
[2018-12-24] MEDS: guaiFENesin 600 MG ER Tablet PO SCH (21:43)
[2018-12-25 08:12] LABS: INR 1.5 Ratio; Prothrombin Time 15.4 sec (9.8-11.6)
[2018-12-25 08:30] LABS: Albumin 3.2 g/dL (3.4-5.0); Carbon Dioxide 32.3 meq/L (21.0-32.0); Potassium 4.4 meq/L (3.5-5.1)
[2018-12-25 08:31] LABS: Phosphorus 4.3 mg/dL (2.5-4.9)
[2018-12-25] MEDS: Potassium Chloride 10 MEQ ER Capsule PO SCH ×2 (09:42→22:01)
[2018-12-25] MEDS: guaiFENesin 600 MG ER Tablet PO SCH ×2 (09:42→22:01)
[2018-12-25] MEDS: clonazePAM 0.5 MG Tablet PO SCH (09:42)
[2018-12-25] MEDS: Carvedilol 12.5 MG Tablet PO SCH ×2 (09:42→22:01)
[2018-12-25] MEDS: traZODone 50 MG Tablet PO SCH ×2 (09:49→22:01)
--- NOTE | 2018-12-25 13:55 | P.PNIM ---
Subjective Interval history: 83-year-old gentleman admitted with acute CHF exacerbation, acute kidney injury and bronchitis/pna Patient seen and examined, doing a little better today after nebs and solumedrol yesterday, denies cp, still w le edema Physical Exam Vital signs: Vital Signs 12/24/18 16:00 12/24/18 19:35 12/24/18 20:00 Temperature 98.4 F 97.5 F L Pulse Rate 65 67 Respiratory Rate 16 20 Blood Pressure 114/83 101/56 L Pulse Oximetry 99 95 97 12/24/18 20:01 12/24/18 23:15 12/25/18 00:00 Temperature 97.9 F Pulse Rate 66 57 L 67 Respiratory Rate 20 Blood Pressure 107/55 L Pulse Oximetry 97 12/25/18 03:25 12/25/18 04:00 12/25/18 08:00 Temperature 97.8 F 97.9 F Pulse Rate 60 62 68 Respiratory Rate 18 18 Blood Pressure 102/54 L 93/53 L Pulse Oximetry 97 94 L 12/25/18 08:25 12/25/18 12:00 Temperature 97.3 F L Pulse Rate 80 60 Respiratory Rate 20 18 Blood Pressure 111/62 Pulse Oximetry 96 Intake & Output 12/24/18 12/25/18 12/25/18 18:59 06:59 18:59 Intake Total 120 / 120 Output Total 950 / 950 Balance -830 / -830 Weight 93 kg Intake: Oral 120 / 120 Output: Urine 950 / 950 Other: Date of Last Bowel Movement 12/23/18 12/24/18 12/24/18 # Bowel Movements 0 Narrative: Well-developed well-nourished 83-year-old white male Awake alert oriented no acute distress sitting up in chair on room air Heart S1-S2 regular Lungs with crackles at bases better with coarse rhonchi and wheeze left lung much improved today better air movement Abdomen obese soft nondistended positive bowel sounds Extremities +2 tight edema chronic hyperemic discoloration slight improvement Results Labs CBC & Chem 7: 12/21/18 15:42 12/25/18 06:45 Imaging Imaging: Impressions Chest X-Ray 12/24/18 00:00 CONCLUSION: Cardiomegaly. Asbestos pleural disease with chronic atelectasis and scarring at the bases similar to prior chest radiographs. No new infiltrate. Assessment and Plan (1) Acute exacerbation of CHF (congestive heart failure): Code(s): I50.9 - Heart failure, unspecified Status: Acute (2) Elevated troponin I level: Code(s): R74.8 - Abnormal levels of other serum enzymes Status: Acute (3) Acute renal insufficiency: Code(s): N28.9 - Disorder of kidney and ureter, unspecified Status: Acute (4) History of coronary artery bypass graft: Code(s): Z95.1 - Presence of aortocoronary bypass graft Status: Acute (5) History of implantable cardiac defibrillator (ICD): Status: Acute Plan ACUTE EXACERBATION OF CHRONIC SYSTOLIC CHF - iv diuresis, strict i/o, daily weights, cardio following, cautious diuresis w ckd 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 - cont coreg, arb, not on entresto fu w cardio TROPONIN elevation trace likely due to above ,no acute mi - cont asa AFIB - chronic on coumadin, consult pharm to dose, cont rate control RML opacity on cxr concerning for pna/bronchitis vs chf - fu cxr post diuresis w chronic changes no new infiltrate, clinically now having cough and congestion , rhonchi audible on L yest, cont 5-7 d doxy, and s/p iv steroid for bronchospasm/copd, cont is CASTRO on CKD - creat improved ,cont i/os and diuesis as tolerated COPD - w mild bronchospasm, burst of streroid, nebs bid and prn, cont home breo HTN - cont bp control [place] DYSLIPIDEMIA - statin, PVD p fempop - asa statin, on coumadin dvt prophylaxis coumadin, inr 1.5, continue coumadin dispo - home when stable. Progress Note: Quality VTE Deep Vein Thrombosis/Pulmonary Embolism Present on Admission: No _ (1) Acute exacerbation of CHF (congestive heart failure) Qualifiers: Heart failure type: unspecified Qualified Code(s): I50.9 - Heart failure, unspecified
--- NOTE | 2018-12-25 15:53 | P.PNCA ---
Subjective Interval history: Patient sitting up in a chair visiting with his son. He denies any CP, pressure , palpitations or dizziness. He states that his edema and SOB is slowly improving and he is feeling better. Medications and Allergies Allergies Allergy/AdvReac Type Severity Reaction Status Date / Time adhesive Allergy Severe Rash Verified 11/30/18 07:30 Sulfa (Sulfonamide Allergy Severe UNKNOWN Verified 11/30/18 07:30 Antibiotics) Home Medications Medication Instructions Recorded Confirmed Type carvedilol 25 mg PO BID 06/19/18 12/21/18 History clonazepam 0.5 mg PO DAILY 06/19/18 12/21/18 History hydrocodone-acetaminophen 1 tab PO Q6H PRN 06/19/18 12/21/18 History losartan 25 mg PO DAILY 06/19/18 12/21/18 History magnesium oxide 500 mg PO DAILY 06/19/18 12/21/18 History mirtazapine 30 mg PO HS 06/19/18 12/21/18 History montelukast 10 mg PO DAILY 06/19/18 12/21/18 History potassium chloride 20 meq PO DAILY 06/19/18 12/21/18 History torsemide 20 mg PO DAILY 06/19/18 12/21/18 History trazodone 12.5 mg PO BID 06/19/18 12/21/18 History warfarin 1 mg PO DAILY 06/19/18 12/21/18 History fluticasone-vilanterol [Breo 1 inh INHALATION DAILY 06/20/18 12/21/18 History Ellipta] Active Medications: Active Medications Acetaminophen (Tylenol) 650 mg PO Q4H PRN PRN Reason: headache, pain 2-5, or fever Hydrocodone Bitart/Acetaminophen ([place] 5/325) 1 tab PO Q6H PRN PRN Reason: Pain 1-10 Albuterol (Duoneb Neb (Sanjay)) 1 ampul NEB BID NEB [facility] Last Admin: 12/25/18 08:22 Dose: 1 ampul Atorvastatin Calcium (Lipitor) 20 mg PO HS [facility] Last Admin: 12/24/18 21:42 Dose: 20 mg Benzonatate (Tessalon Perles) 100 mg PO Q8H PRN PRN Reason: COUGH Bumetanide (Bumex Inj) 1 mg IV.PUSH BID@0900,1800 [facility] Last Admin: 12/25/18 09:45 Dose: 1 mg Carvedilol (Coreg) 25 mg PO BID [facility] Last Admin: 12/25/18 09:42 Dose: 25 mg Clonazepam (Klonopin) 0.5 mg PO DAILY [facility] Last Admin: 12/25/18 09:42 Dose: 0.5 mg Doxycycline Hyclate (Vibramycin) 100 mg PO Q12HR [facility] Last Admin: 12/25/18 09:42 Dose: 100 mg Fluticasone/Vilanterol (Breo Ellipta 200/25 Mcg Inh) 1 puff INH DAILY [facility] Last Admin: 12/25/18 09:48 Dose: 1 puff Guaifenesin (Mucinex Er) 600 mg PO BID [facility] Last Admin: 12/25/18 09:42 Dose: 600 mg Mirtazapine (Remeron) 30 mg PO HS [facility] Last Admin: 12/24/18 21:42 Dose: 30 mg Pharmacy Profile Note (Coumadin Consult Pharmacy) 1 each OTHER UNSCH PRN PRN Reason: PHARMACY DOCUMENTATION Potassium Chloride (Kcl) 10 meq PO BID [facility] Last Admin: 12/25/18 09:42 Dose: 10 meq Sodium Chloride (Ns Flush) 2 ml IV.FLUSH UNSCH PRN PRN Reason: FLUSH AFTER USING IV ACCESS Sodium Chloride (Ns Flush) 2 ml IV.FLUSH BID [facility] Last Admin: 12/25/18 09:43 Dose: 2 ml Trazodone HCl (Desyrel) 25 mg PO BID [facility] Last Admin: 12/25/18 09:49 Dose: 25 mg Warfarin Sodium (Coumadin) 1.5 mg PO DAILY [facility] Last Admin: 12/25/18 09:42 Dose: 1.5 mg Warfarin Sodium (Coumadin) 0.5 mg PO ONCE ONE Stop: 12/25/18 16:01 Physical Exam Vital signs: Vital Signs 12/24/18 16:00 12/24/18 19:35 12/24/18 20:00 Temperature 98.4 F 97.5 F L Pulse Rate 65 67 Respiratory Rate 16 20 Blood Pressure 114/83 101/56 L Pulse Oximetry 99 95 97 12/24/18 20:01 12/24/18 23:15 12/25/18 00:00 Temperature 97.9 F Pulse Rate 66 57 L 67 Respiratory Rate 20 Blood Pressure 107/55 L Pulse Oximetry 97 12/25/18 03:25 12/25/18 04:00 12/25/18 08:00 Temperature 97.8 F 97.9 F Pulse Rate 60 62 68 Respiratory Rate 18 18 Blood Pressure 102/54 L 93/53 L Pulse Oximetry 97 94 L 12/25/18 08:25 12/25/18 12:00 Temperature 97.3 F L Pulse Rate 80 60 Respiratory Rate 20 18 Blood Pressure 111/62 Pulse Oximetry 96 Intake & Output 12/24/18 12/25/18 12/25/18 18:59 06:59 18:59 Intake Total 120 / 120 Output Total 950 / 950 Balance -830 / -830 Weight 93 kg Intake: Oral 120 / 120 Output: Urine 950 / 950 Other: Date of Last Bowel Movement 12/23/18 12/24/18 12/24/18 # Bowel Movements 0 - Constitutional no acute distress - Routine HEENT Exam Head: Present: normocephalic Eye: Present: PERRL ENT: Present: mucous membranes moist - Routine Neck Exam Present: full ROM - Routine Respiratory Exam Present: crackles Comments: Improved air movement, fine crackles bilateral lower lobes. - Routine Cardiovascular Exam Present: S1, S2, irregular rhythm Comments: atrial fibrillation with intermittent pacing. - Routine Abdominal Exam Present: normoactive bowel sounds - Routine Extremities Exam Present: edema, full ROM, pulses intact. Absent: cyanosis, clubbing Comments: 2+ edema lower extremities. - Routine Skin Exam Present: intact - Routine Neurological Exam Present: oriented X3 - Detailed Neurological Exam: Coma Scale Eye Opening: Spontaneous Verbal Response: Oriented Motor Response: Obey commands [place] Coma Scale Total: 15 - Routine Psychiatric Exam Present: normal affect Results 12/21/18 15:42 12/25/18 06:45 Coagulation 12/25/18 Range/Units 06:45 PT 15.4 H (9.8-11.6) sec Lipids 12/24/18 Range/Units 09:51 Triglycerides 167 H (42-150) mg/dL Cholesterol 229 H (120-200) mg/dL HDL Cholesterol 35.6 L (40.0-60.0) mg/dL Cholesterol/HDL Ratio 6.43 Ratio Comprehensive Metabolic Panel 12/24/18 12/25/18 Range/Units 09:51 06:45 Sodium 143 142 (136-145) meq/L Potassium 4.2 4.4 (3.5-5.1) meq/L Chloride 104 102 (98-107) meq/L Carbon Dioxide 33.6 H 32.3 H (21.0-32.0) meq/L BUN 35 H 40 H (7-18) mg/dL Creatinine 1.51 H 1.25 (0.60-1.30) mg/dL Calcium 8.7 9.0 (8.5-10.1) mg/dL Albumin 3.2 L (3.4-5.0) g/dL Intake and Output 12/25/18 12/25/18 12/25/18 06:59 14:59 22:59 Intake Total 120 / 120 Output Total 950 / 950 Balance -830 / -830 Intake: Oral 120 / 120 Output: Urine 950 / 950 Other: Date of Last Bowel Movement 12/24/18 # Bowel Movements 0 Weight 93 kg - Imaging and Cardiology Imaging: Impressions Chest X-Ray 12/24/18 00:00 CONCLUSION: Cardiomegaly. Asbestos pleural disease with chronic atelectasis and scarring at the bases similar to prior chest radiographs. No new infiltrate. Assessment and Plan - Assessment (1) Acute exacerbation of CHF (congestive heart failure) Code(s): I50.9 - Heart failure, unspecified Status: Acute (2) Elevated troponin I level Code(s): R74.8 - Abnormal levels of other serum enzymes Status: Acute (3) Acute renal insufficiency Code(s): N28.9 - Disorder of kidney and ureter, unspecified Status: Acute (4) History of coronary artery bypass graft Code(s): Z95.1 - Presence of aortocoronary bypass graft Status: Acute (5) History of implantable cardiac defibrillator (ICD) Status: Acute - Plan There are no new cardiac issues noted at this time. Continue IV Bumex and Coreg for CHF treatment. Continue to increase his activity as he tolerates. Renal function has improved, continue to monitor. Continue to monitor the patient on telemetry. We discussed the importance of a no salt diet when he goes home, he verbalized understanding. We will continue to monitor the patient during his hospitalization. He is to follow up with his primary associate medical director, Dr. Saavedra, after discharge from the hospital. The patient was seen and evaluated by Dr. Pugh who participated in care, management and decision making. - Attending Attestation Patient seen and examined. I reviewed and agree with the evaluation and plan as presented. Continue tx for CHF including diuresis, closely monitor renal fx. Continue beta khurram. Increase activity. F/u w Dr. Saavedra after discharge. (1) Acute exacerbation of CHF (congestive heart failure) Qualifiers: Heart failure type: unspecified Qualified Code(s): I50.9 - Heart failure, unspecified
[2018-12-25] MEDS: Mirtazapine 15 MG Tablet PO SCH (22:00)
[2018-12-26 07:24] LABS: INR 1.8 Ratio; Prothrombin Time 18.1 sec (9.8-11.6)
[2018-12-26] MEDS: Carvedilol 12.5 MG Tablet PO SCH ×2 (08:38→21:00)
[2018-12-26] MEDS: clonazePAM 0.5 MG Tablet PO SCH (08:39)
[2018-12-26] MEDS: traZODone 50 MG Tablet PO SCH ×2 (08:39→21:00)
[2018-12-26] MEDS: guaiFENesin 600 MG ER Tablet PO SCH ×2 (08:39→21:00)
[2018-12-26] MEDS: Potassium Chloride 10 MEQ ER Capsule PO SCH ×2 (08:40→21:00)
--- NOTE | 2018-12-26 13:12 | P.PNCA ---
Subjective Interval history: He denies any CP, pressure, dizziness or palpitations. He does continue to complain of mild SOB with activity and improving lower extremity edema. Medications and Allergies Allergies Allergy/AdvReac Type Severity Reaction Status Date / Time adhesive Allergy Severe Rash Verified 11/30/18 07:30 Sulfa (Sulfonamide Allergy Severe UNKNOWN Verified 11/30/18 07:30 Antibiotics) Home Medications Medication Instructions Recorded Confirmed Type carvedilol 25 mg PO BID 06/19/18 12/21/18 History clonazepam 0.5 mg PO DAILY 06/19/18 12/21/18 History hydrocodone-acetaminophen 1 tab PO Q6H PRN 06/19/18 12/21/18 History losartan 25 mg PO DAILY 06/19/18 12/21/18 History magnesium oxide 500 mg PO DAILY 06/19/18 12/21/18 History mirtazapine 30 mg PO HS 06/19/18 12/21/18 History montelukast 10 mg PO DAILY 06/19/18 12/21/18 History potassium chloride 20 meq PO DAILY 06/19/18 12/21/18 History torsemide 20 mg PO DAILY 06/19/18 12/21/18 History trazodone 12.5 mg PO BID 06/19/18 12/21/18 History warfarin 1 mg PO DAILY 06/19/18 12/21/18 History fluticasone-vilanterol [Breo 1 inh INHALATION DAILY 06/20/18 12/21/18 History Ellipta] Active Medications: Active Medications Acetaminophen (Tylenol) 650 mg PO Q4H PRN PRN Reason: headache, pain 2-5, or fever Hydrocodone Bitart/Acetaminophen ([place] 5/325) 1 tab PO Q6H PRN PRN Reason: Pain 1-10 Albuterol (Duoneb Neb (Sanjay)) 1 ampul NEB BID NEB [facility] Last Admin: 12/26/18 07:33 Dose: 1 ampul Atorvastatin Calcium (Lipitor) 20 mg PO HS [facility] Last Admin: 12/25/18 22:01 Dose: 20 mg Benzonatate (Tessalon Perles) 100 mg PO Q8H PRN PRN Reason: COUGH Bumetanide (Bumex Inj) 1 mg IV.PUSH BID@0900,1800 [facility] Last Admin: 12/26/18 08:40 Dose: 1 mg Carvedilol (Coreg) 25 mg PO BID [facility] Last Admin: 12/26/18 08:38 Dose: 25 mg Clonazepam (Klonopin) 0.5 mg PO DAILY [facility] Last Admin: 12/26/18 08:39 Dose: 0.5 mg Doxycycline Hyclate (Vibramycin) 100 mg PO Q12HR [facility] Last Admin: 12/26/18 08:39 Dose: 100 mg Fluticasone/Vilanterol (Breo Ellipta 200/25 Mcg Inh) 1 puff INH DAILY [facility] Last Admin: 12/26/18 08:40 Dose: 1 puff Guaifenesin (Mucinex Er) 600 mg PO BID [facility] Last Admin: 12/26/18 08:39 Dose: 600 mg Mirtazapine (Remeron) 30 mg PO HS [facility] Last Admin: 12/25/18 22:00 Dose: 30 mg Pharmacy Profile Note (Coumadin Consult Pharmacy) 1 each OTHER UNSCH PRN PRN Reason: PHARMACY DOCUMENTATION Potassium Chloride (Kcl) 10 meq PO BID [facility] Last Admin: 12/26/18 08:40 Dose: 10 meq Sodium Chloride (Ns Flush) 2 ml IV.FLUSH UNSCH PRN PRN Reason: FLUSH AFTER USING IV ACCESS Sodium Chloride (Ns Flush) 2 ml IV.FLUSH BID [facility] Last Admin: 12/26/18 08:46 Dose: 2 ml Trazodone HCl (Desyrel) 25 mg PO BID [facility] Last Admin: 12/26/18 08:39 Dose: 25 mg Warfarin Sodium (Coumadin) 1.5 mg PO DAILY [facility] Last Admin: 12/26/18 08:46 Dose: 1.5 mg Physical Exam Vital signs: Vital Signs 12/25/18 16:00 12/25/18 16:22 12/25/18 16:25 Temperature 97.5 F L Pulse Rate 62 84 Respiratory Rate 18 20 Blood Pressure 130/73 Pulse Oximetry 97 91 L 12/25/18 17:41 12/25/18 20:00 12/26/18 00:00 Temperature 97.4 F L 98 F Pulse Rate 69 60 Respiratory Rate 17 16 Blood Pressure 108/57 L 108/52 L Pulse Oximetry 92 L 94 L 93 L 12/26/18 04:00 12/26/18 07:35 12/26/18 08:00 Temperature 97.2 F L 97.4 F L Pulse Rate 60 68 60 Respiratory Rate 16 18 18 Blood Pressure 101/54 L 128/74 Pulse Oximetry 91 L 96 Intake & Output 12/25/18 12/26/18 12/26/18 18:59 06:59 18:59 Intake Total 480 / 480 240 / 240 Output Total 1050 / 1050 675 / 675 Balance -570 / -570 -435 / -435 Weight 93 kg Intake: Oral 480 / 480 240 / 240 Output: Urine 1050 / 1050 675 / 675 Other: Date of Last Bowel Movement 12/24/18 12/24/18 12/24/18 - Constitutional no acute distress - Routine HEENT Exam Head: Present: normocephalic Eye: Present: PERRL ENT: Present: mucous membranes moist - Routine Neck Exam Present: full ROM - Routine Respiratory Exam Present: CTA bilaterally - Routine Cardiovascular Exam Present: S1, S2. Absent: murmur, gallop, rubs - Routine Abdominal Exam Present: normoactive bowel sounds - Routine Extremities Exam Present: edema, full ROM, pulses intact, normal capillary refill. Absent: cyanosis, clubbing Comments: 1+ edema lower extremities. - Routine Skin Exam Present: intact - Routine Neurological Exam Present: oriented X3 - Detailed Neurological Exam: Coma Scale Eye Opening: Spontaneous Verbal Response: Oriented Motor Response: Obey commands [place] Coma Scale Total: 15 - Routine Psychiatric Exam Present: normal affect Results 12/21/18 15:42 12/26/18 15:54 Coagulation 12/25/18 12/26/18 Range/Units 06:45 05:50 PT 15.4 H 18.1 H (9.8-11.6) sec Comprehensive Metabolic Panel 12/25/18 Range/Units 06:45 Sodium 142 (136-145) meq/L Potassium 4.4 (3.5-5.1) meq/L Chloride 102 (98-107) meq/L Carbon Dioxide 32.3 H (21.0-32.0) meq/L BUN 40 H (7-18) mg/dL Creatinine 1.25 (0.60-1.30) mg/dL Calcium 9.0 (8.5-10.1) mg/dL Albumin 3.2 L (3.4-5.0) g/dL Intake and Output 12/25/18 12/26/18 12/26/18 22:59 06:59 14:59 Intake Total 480 / 480 240 / 240 Output Total 1050 / 1050 675 / 675 Balance -570 / -570 -435 / -435 Intake: Oral 480 / 480 240 / 240 Output: Urine 1050 / 1050 675 / 675 Other: Date of Last Bowel Movement 12/24/18 12/24/18 Weight 93 kg - Imaging and Cardiology Imaging: Impressions Chest X-Ray 12/24/18 00:00 CONCLUSION: Cardiomegaly. Asbestos pleural disease with chronic atelectasis and scarring at the bases similar to prior chest radiographs. No new infiltrate. Assessment and Plan - Assessment (1) Acute exacerbation of CHF (congestive heart failure) Code(s): I50.9 - Heart failure, unspecified Status: Acute (2) Elevated troponin I level Code(s): R74.8 - Abnormal levels of other serum enzymes Status: Acute (3) Acute renal insufficiency Code(s): N28.9 - Disorder of kidney and ureter, unspecified Status: Acute (4) History of coronary artery bypass graft Code(s): Z95.1 - Presence of aortocoronary bypass graft Status: Acute (5) History of implantable cardiac defibrillator (ICD) Status: Acute - Plan Edema in the lower extremities has greatly improved, continue diuresis and renal function monitoring. Monitor BMP to reevaluate renal function. There are no new cardiac issues noted at this time. Continue to monitor the patient on telemetry. Continue to increase his activity as he tolerates. Anticipate discharge soon. We will continue to monitor the patient during his hospitalization. He is to follow up with his primary senior environmental engineer, Dr. Saavedra, after discharge from the hospital. The patient was seen and evaluated by Dr. Pugh who participated in care, management and decision making. - Attending Attestation Patient seen and examined. I reviewed and agree with the evaluation and plan as presented. Continue tx for CHF. Monitor renal fx. F/u w Dr. Saavedra after discharge. (1) Acute exacerbation of CHF (congestive heart failure) Qualifiers: Heart failure type: unspecified Qualified Code(s): I50.9 - Heart failure, unspecified
--- NOTE | 2018-12-26 15:56 | P.PNIM ---
Subjective Interval history: Patient reports he is feeling slightly better today. Still has mild shortness of breath and bilateral lower extremity edema. Physical Exam Vital signs: Vital Signs 12/25/18 16:00 12/25/18 16:22 12/25/18 16:25 Temperature 97.5 F L Pulse Rate 62 84 Respiratory Rate 18 20 Blood Pressure 130/73 Pulse Oximetry 97 91 L 12/25/18 17:41 12/25/18 20:00 12/26/18 00:00 Temperature 97.4 F L 98 F Pulse Rate 69 60 Respiratory Rate 17 16 Blood Pressure 108/57 L 108/52 L Pulse Oximetry 92 L 94 L 93 L 12/26/18 04:00 12/26/18 07:35 12/26/18 08:00 Temperature 97.2 F L 97.4 F L Pulse Rate 60 68 71 Respiratory Rate 16 18 18 Blood Pressure 101/54 L 128/74 Pulse Oximetry 91 L 96 12/26/18 12:00 Temperature 97.3 F L Pulse Rate 65 Respiratory Rate 18 Blood Pressure 106/60 Pulse Oximetry 95 Intake & Output 12/25/18 12/26/18 12/26/18 18:59 06:59 18:59 Intake Total 480 / 480 240 / 240 Output Total 1050 / 1050 675 / 675 Balance -570 / -570 -435 / -435 Weight 93 kg Intake: Oral 480 / 480 240 / 240 Output: Urine 1050 / 1050 675 / 675 Other: Date of Last Bowel Movement 12/24/18 12/24/18 12/24/18 Narrative: Well-developed well-nourished 83-year-old white male Awake alert oriented no acute distress sitting up in chair on room air Heart with normal S1-S2 regular Lungs clear to auscultation bilaterally except for faint bilateral basilar crackles. Abdomen obese soft nondistended positive bowel sounds Extremities +2 edema chronic hyperemic discoloration slight improvement Results Labs CBC & Chem 7: 12/21/18 15:42 12/26/18 15:54 Labs: Microbiology 12/26/18 00:15 Sputum - Expectorated Sputum Gram Stain - Final Assessment and Plan (1) Acute exacerbation of CHF (congestive heart failure): Code(s): I50.9 - Heart failure, unspecified Status: Acute (2) Elevated troponin I level: Code(s): R74.8 - Abnormal levels of other serum enzymes Status: Acute (3) Acute renal insufficiency: Code(s): N28.9 - Disorder of kidney and ureter, unspecified Status: Acute (4) History of coronary artery bypass graft: Code(s): Z95.1 - Presence of aortocoronary bypass graft Status: Acute (5) History of implantable cardiac defibrillator (ICD): Status: Acute Plan 83-year-old male admitted with: Acute on chronic systolic CHF: EF of 40-50% post CABG. - Continue IV diuretics with Bumex. Plan to transition to oral in the morning. - Continue Coreg. BP labile therefore will hold CHEYANNE inhibitor use for now. May be a candidate for Entresto. Will defer to his straddle bug. TROPONIN elevation : Likely secondary to above. No acute mi - cont asa AFIB - chronic on coumadin, INR currently 1.8. Titrate Coumadin as needed. Pharmacy following. RML opacity on cxr concerning for pna/bronchitis vs chf - fu cxr post diuresis w chronic changes no new infiltrate, clinically now having cough and congestion , rhonchi audible on L yest, cont 5-7 d doxy, and s/p iv steroid for bronchospasm/copd, cont is CASTRO on CKD - creat improved and stable,cont i/os and diuresis as tolerated COPD - w mild bronchospasm, burst of steroid, nebs bid and prn, cont home breo HTN - cont antihypertensives as above. DYSLIPIDEMIA - statin, PVD sp fempop - asa statin, on coumadin dvt prophylaxis: On Coumadin Disposal: Patient is reaching maximal benefit from this hospitalization. Anticipate discharge tomorrow morning. Progress Note: Quality VTE Deep Vein Thrombosis/Pulmonary Embolism Present on Admission: No _ (1) Acute exacerbation of CHF (congestive heart failure) Qualifiers: Heart failure type: unspecified Qualified Code(s): I50.9 - Heart failure, unspecified
[2018-12-26 16:41] LABS: Calcium 8.9 mg/dL (8.5-10.1); Carbon Dioxide 32.4 meq/L (21.0-32.0); Potassium 4.2 meq/L (3.5-5.1)
[2018-12-26] MEDS: Mirtazapine 15 MG Tablet PO SCH (20:59)
[2018-12-27 07:57] VITALS: RESP 18
--- NOTE | 2018-12-27 08:37 | P.DCO ---
Diagnosis (1) Acute exacerbation of CHF (congestive heart failure): Status: Acute (2) Elevated troponin I level: Status: Acute (3) Acute renal insufficiency: Status: Acute (4) History of coronary artery bypass graft: Status: Acute (5) History of implantable cardiac defibrillator (ICD): Status: Acute Physical Therapy Order: Evaluate and treat, Improve ambulation and Strength and gait training Home Health Nursing Order: Medical education, Signs/symptoms of disease process, CHF education and Medication education-adverse effect Case Management Consult Case Management Consult-Home Health: Yes I have seen patient Sebastián Allen on 12/27/18. My clinical findings support the need for the requested home health care services because: Limited mobility due to disease progression, Patient has SOB and Deconditioned with increased weakness I certify that my clinical findings support that this patient is homebound because: Poor cardiac reserve _ (1) Acute exacerbation of CHF (congestive heart failure) Qualifiers: Heart failure type: unspecified Qualified Code(s): I50.9 - Heart failure, unspecified
[2018-12-27 09:10] VITALS: BP 143/63; PULSE 64; TEMP 97.8; O2SAT 96
[2018-12-27] MEDS: guaiFENesin 600 MG ER Tablet PO SCH (09:17)
[2018-12-27] MEDS: Carvedilol 12.5 MG Tablet PO SCH (09:17)
[2018-12-27] MEDS: Potassium Chloride 10 MEQ ER Capsule PO SCH (09:17)
[2018-12-27] MEDS: traZODone 50 MG Tablet PO SCH (09:18)
[2018-12-27] MEDS: clonazePAM 0.5 MG Tablet PO SCH (09:18)
[2018-12-27 09:20] LABS: INR 1.8 Ratio; Prothrombin Time 18.1 sec (9.8-11.6)
--- NOTE | 2018-12-27 10:26 | P.PNCA ---
Subjective Interval history: Patient denies any CP, pressure or dizziness. He does complain of mild SOB and edema that is improving. Medications and Allergies Allergies Allergy/AdvReac Type Severity Reaction Status Date / Time adhesive Allergy Severe Rash Verified 11/30/18 07:30 Sulfa (Sulfonamide Allergy Severe UNKNOWN Verified 11/30/18 07:30 Antibiotics) Home Medications Medication Instructions Recorded Confirmed Type carvedilol 25 mg PO BID 06/19/18 12/21/18 History clonazepam 0.5 mg PO DAILY 06/19/18 12/21/18 History hydrocodone-acetaminophen 1 tab PO Q6H PRN 06/19/18 12/21/18 History losartan 25 mg PO DAILY 06/19/18 12/21/18 History magnesium oxide 500 mg PO DAILY 06/19/18 12/21/18 History mirtazapine 30 mg PO HS 06/19/18 12/21/18 History montelukast 10 mg PO DAILY 06/19/18 12/21/18 History potassium chloride 20 meq PO DAILY 06/19/18 12/21/18 History trazodone 12.5 mg PO BID 06/19/18 12/21/18 History warfarin 1 mg PO DAILY 06/19/18 12/21/18 History fluticasone-vilanterol [Breo 1 inh INHALATION DAILY 06/20/18 12/21/18 History Ellipta] Physical Exam Vital signs: Vital Signs 12/26/18 12:00 12/26/18 16:00 12/26/18 16:34 Temperature 97.3 F L 97.6 F 97.3 F L Pulse Rate 65 66 66 Respiratory Rate 18 18 17 Blood Pressure 106/60 130/66 143/77 H Pulse Oximetry 95 97 96 12/26/18 20:00 12/27/18 00:00 12/27/18 04:00 Temperature 97.8 F 97.4 F L 98.4 F Pulse Rate 63 60 61 Respiratory Rate 16 16 16 Blood Pressure 117/69 132/71 122/62 Pulse Oximetry 93 L 97 95 12/27/18 07:55 12/27/18 08:08 Temperature 97.8 F Pulse Rate 60 64 Respiratory Rate 18 18 Blood Pressure 143/63 H Pulse Oximetry 96 Intake & Output 12/26/18 12/27/18 12/27/18 18:59 06:59 18:59 Intake Total 720 / 720 Output Total 700 / 700 800 / 800 Balance -800 / -800 Intake: Oral 720 / 720 Output: Urine 700 / 700 800 / 800 Other: Date of Last Bowel Movement 12/24/18 12/24/18 - Constitutional no acute distress - Routine HEENT Exam Head: Present: normocephalic Eye: Present: PERRL ENT: Present: mucous membranes moist - Routine Neck Exam Present: full ROM - Routine Respiratory Exam Present: crackles Comments: Fine crackles bilateral lower lobes other lamb clear - Routine Cardiovascular Exam Present: S1, S2. Absent: murmur, gallop, rubs - Routine Abdominal Exam Present: normoactive bowel sounds - Routine Extremities Exam Present: edema, full ROM, pulses intact, normal capillary refill. Absent: cyanosis, clubbing Comments: trace lower extremities. - Routine Skin Exam Present: intact - Routine Neurological Exam Present: oriented X3 - Detailed Neurological Exam: Coma Scale Eye Opening: Spontaneous Verbal Response: Oriented Motor Response: Obey commands Sahil Coma Scale Total: 15 - Routine Psychiatric Exam Present: normal affect Results 12/21/18 15:42 12/26/18 15:54 Coagulation 12/26/18 12/27/18 Range/Units 05:50 07:31 PT 18.1 H 18.1 H (9.8-11.6) sec Comprehensive Metabolic Panel 12/26/18 Range/Units 15:54 Sodium 144 (136-145) meq/L Potassium 4.2 (3.5-5.1) meq/L Chloride 104 (98-107) meq/L Carbon Dioxide 32.4 H (21.0-32.0) meq/L BUN 54 H (7-18) mg/dL Creatinine 1.61 H (0.60-1.30) mg/dL Calcium 8.9 (8.5-10.1) mg/dL Intake and Output 12/26/18 12/27/18 12/27/18 22:59 06:59 14:59 Intake Total 720 / 720 Output Total 700 / 700 800 / 800 Balance -800 / -800 Intake: Oral 720 / 720 Output: Urine 700 / 700 800 / 800 Other: Date of Last Bowel Movement 12/24/18 Assessment and Plan - Assessment (1) Acute exacerbation of CHF (congestive heart failure) Code(s): I50.9 - Heart failure, unspecified Status: Acute (2) Elevated troponin I level Code(s): R74.8 - Abnormal levels of other serum enzymes Status: Acute (3) Acute renal insufficiency Code(s): N28.9 - Disorder of kidney and ureter, unspecified Status: Acute (4) History of coronary artery bypass graft Code(s): Z95.1 - Presence of aortocoronary bypass graft Status: Acute (5) History of implantable cardiac defibrillator (ICD) Status: Acute - Plan There are no new cardiac issues noted at this time, overall improved. We will continue with current cardiac treatment plan for CHF. He can be cleared for discharge from a cardiology standpoint. He is to follow up with his primary continuous improvement analyst, Dr. Saavedra, after discharge from the hospital. The patient was seen and evaluated by Dr. Pugh who participated in care, management and decision making. - Attending Attestation Patient seen and examined. I reviewed and agree with the evaluation and plan as presented. Continue tx for CHF. DC home. F/u w Dr. Saavedra in 1 week. (1) Acute exacerbation of CHF (congestive heart failure) Qualifiers: Heart failure type: unspecified Qualified Code(s): I50.9 - Heart failure, unspecified
--- NOTE | 2018-12-27 10:55 | P.DS ---
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 The patient's occupational therapist aide, Dr. Satya Quinones sent him in for further evaluation. The patient reports he initially started having shortness of breath 3 weeks ago. He reports the shortness of breath is continued to worsen and he can now no longer walk more than 10 steps before having to stop and rest. He endorses worsening bilateral lower extremity and states he has been eating a lot of processed food lately and has not been following his salt restriction. He was seen by his primary care provider who increased his torsemide but yesterday the dosing was decreased again secondary to acute kidney injury. The patient denies any chest pain. No abdominal pain. No nausea/vomiting/diarrhea. No fever/chills. No focal neurologic deficits. Patient update on day of discharge: Patient reports he is feeling better today. Breathing comfortably. Lower extremity edema improving. We discussed discharge planning at length and the need to adhere to a low-salt diet and follow-up outpatient with cardiology. DS: Diagnosis Discharge Diagnosis (1) Acute exacerbation of CHF (congestive heart failure): Status: Acute (2) Elevated troponin I level: Status: Acute (3) Acute renal insufficiency: Status: Acute (4) History of coronary artery bypass graft: Status: Acute (5) History of implantable cardiac defibrillator (ICD): Status: Acute DS: Summary 83-year-old male admitted and treated for the following: Acute on chronic systolic CHF: EF of 40-50% post CABG. -Patient treated with IV Bumex. He is transition to oral Bumex on discharge. - Continue Coreg. He can continue with valsartan on discharge. May be a candidate for Entresto. Will defer to his occupational therapist aide. - The patient was extensively counseled on diet low in salt and restrict fluid. He is advised to follow-up outpatient with cardiology. TROPONIN elevation : Likely secondary to above. No acute mi - cont asa AFIB - chronic on coumadin, INR currently 1.8. Titrate Coumadin as needed outpatient. RML opacity on cxr concerning for pna/bronchitis vs chf - fu cxr post diuresis w chronic changes no new infiltrate, clinically patient had a cough and congestion, rhonchi audible on L he is treated with doxycycline, and s/p iv steroid for bronchospasm/copd, continue incentive spirometry at home. CASTRO on CKD - creat improved and stable, he is advised to follow-up outpatient with PCP for repeat labs. COPD - w mild bronchospasm, status post burst of steroid, nebs bid and prn, cont home breo HTN - cont antihypertensives as above. DYSLIPIDEMIA - statin, PVD sp fempop - asa statin, on coumadin Time Spent with Patient Total time spent providing and/or coordinating discharge services: Greater than 30 minutes Quality: VTE Deep Vein Thrombosis/Pulmonary Embolism Present on Admission: No Exam Narrative Exam Narrative: Well-developed well-nourished 83-year-old white male Awake alert oriented no acute distress sitting up in chair on room air Heart with normal S1-S2 regular Lungs clear to auscultation bilaterally except for faint bilateral basilar crackles. Abdomen obese soft nondistended positive bowel sounds Extremities +1 edema chronic hyperemic discoloration, improved compared to prior exam. Results Labs on day of discharge: Labs from last 24 hours 12/27/18 12/27/18 12/26/18 07:31 07:31 15:54 PT 18.1 H INR 1.8 Sodium Pending 144 Potassium Pending 4.2 Chloride Pending 104 Carbon Dioxide Pending 32.4 H Anion Gap Pending 8 BUN Pending 54 H Creatinine Pending 1.61 H Estimated GFR 41 L Random Glucose Pending 82 Calcium Pending 8.9 Impressions ITS Impressions Chest X-Ray 12/24/18 00:00 CONCLUSION: Cardiomegaly. Asbestos pleural disease with chronic atelectasis and scarring at the bases similar to prior chest radiographs. No new infiltrate. Discharge Plan Discharge Disposition Patient Disposition: Disch W/Home Health Service Discharge Condition Condition: Good Discharge Order Discharge Orders: Discharge Order (Routine); Ordered 12/27/18 Ordered By: Caleb Corbett Physicians Team ED Provider: Oral Michelle ED Midlevel Provider: Joe Perez Primary Care Provider: Valente Addison Attending Provider: Caleb Corbett Other Providers: Navin Saavedra Rxs /Orders / Referrals /Forms Prescriptions: New doxycycline hyclate 100 mg Capsule 100 mg PO Q12HR Qty: 6 RF: 0 bumetanide 1 mg tablet 1 mg PO BID Qty: 60 RF: 0 Continue carvedilol 25 mg Tablet 25 mg PO BID RF: 0 trazodone 50 mg Tablet 12.5 mg PO BID RF: 0 hydrocodone-acetaminophen 5-325 mg Tablet 1 tab PO Q6H PRN (Reason: Pain) RF: 0 clonazepam 0.5 mg Tablet 0.5 mg PO DAILY RF: 0 potassium chloride 20 mEq Packet 20 meq PO DAILY RF: 0 losartan 25 mg Tablet 25 mg PO DAILY RF: 0 magnesium oxide 500 mg Tablet 500 mg PO DAILY RF: 0 montelukast 10 mg Tablet 10 mg PO DAILY RF: 0 mirtazapine 15 mg Tablet 30 mg PO HS RF: 0 warfarin 1 mg Tablet 1 mg PO DAILY RF: 0 fluticasone-vilanterol [Breo Ellipta] 200-25 mcg/dose Blister With Device 1 inh INHALATION DAILY RF: 0 Discontinued torsemide 20 mg Tablet 20 mg PO DAILY RF: 0 Referrals: Valente Addison, [Primary Care Provider] - See Instructions (YOUR APPOINTMENT IS ON TUESDAY, JANUARY 01, 2019 @ 10:[address] ADDISON ) Discharge Instructions Patient Printed Instructions: Bumetanide (By mouth), Doxycycline (By mouth), Heart Failure (DC) Post Discharge Care Plan Care Plan Goals: Discharge Care Plan Goals for Congestive Heart Failure Directions to Meet your Goals: 1. Diet: Limit your salt by doing the following: * Limit canned, dried, packaged, and fast foods. * Don't add salt to your food. * Season foods with herbs instead of salt. * Watch how much liquids you drink. Drinking too much can make heart failure worse. Talk with your health care provider about how much you should drink each day. * Limit the amount of alcohol you drink. It may harm your heart. Women should have no more than 1 drink a day and men should have no more than 2. * When you eat out, request that your meals have no added salt. 2. Activity: * You can benefit from simple activities such as walking or gardening. * Exercising most days of the week can make you feel better. * Don't be discouraged if your progress is slow at first. * Rest as needed. * Stop activity if you develop symptoms such as chest pain, lightheadedness, or significant shortness of breath. * Find activities that you enjoy, such as brisk walking, dancing, swimming, or gardening. These will help you stay active and strengthen your heart. 3. Medicine: * Take your medicines exactly as prescribed. * Learn the names and purpose of each of your medicines. * Keep an accurate medicine list and current dosages with you at all times. Don' t skip doses. * If you miss a dose of your medicine, take it as soon as you remember. * If you miss a dose and it's almost time for your next dose, just wait and take your next dose at the normal time. Don't take a double dose. * If you are unsure, call your doctor's office. Make sure not to mix up your medicines or forget what you've taken the same day. 4. Weight Monitoring: * Weigh yourself every day. A sudden weight gain can mean your heart failure is getting worse. * Weigh yourself at the same time of day and in the same kind of clothes. * Ideally, weigh yourself first thing in the morning after you empty your bladder, but before you eat breakfast. * If your weight goes up by more than 2 pounds in 1 day, 5 pounds in 1 week, or whatever weight gain you were told by your doctor, this is a sign that you are retaining more fluid than you should be. * Clues to weight gain include checking your ankles for swelling, or noticing you are short of breath when you lie down. 5. When to call your doctor: Call your doctor right away if you have any of these signs of worsening heart failure: Sudden weight gain (more than 2 pounds in 1 day or 5 pounds in 1 week, or whatever weight gain you were told to report by your doctor) Trouble breathing not related to being active New or increased swelling of your legs or ankles Swelling or pain in your abdomen Breathing trouble at night (waking up short of breath, needing more pillows to breathe) Frequent coughing that doesn't go away Feeling much more tired than usual 6. Follow up: Do Not miss your follow-up appointment. Keep up with all your appointments and yearly check ups Call 911 right away if you have: Severe shortness of breath, such that you can't catch your breath even while resting Severe chest pain that does not resolve with rest or nitroglycerin [place], foamy mucus with cough and shortness of breath A continuous rapid or irregular heartbeat Passing out or fainting Stroke symptoms such as sudden numbness or weakness on one side of your face , arm, or leg or sudden confusion, trouble speaking or vision changes Status ED Status: Left Department Discharge Information Discharge Date/Time: 12/27/18 09:57
== END 2018-12-27 09:57 | disposition home health service (06) | DRG 291 ==
LOC: NEPE 14:40 → NEDA 14:40 → OBSVTOIN 17:32 → NEPGCP 19:02 → N04 12-22 17:25
PROVIDERS: ADMIT Family Medicine; ATTEND Family Medicine
DX: I48.2 Chronic atrial fibrillation; Z87.891 Personal history of nicotine dependence; Z77.090 Contact with and (suspected) exposure to asbestos; Z79.01 Long term (current) use of anticoagulants; I50.23 Acute on chronic systolic (congestive) heart failure; N18.9 Chronic kidney disease, unspecified; Z68.33 Body mass index [BMI] 33.0-33.9, adult; E78.5 Hyperlipidemia, unspecified; J44.9 Chronic obstructive pulmonary disease, unspecified; I25.10 Atherosclerotic heart disease of native coronary artery without angina pectoris; I73.9 Peripheral vascular disease, unspecified; I13.0 Hypertensive heart and chronic kidney disease with heart failure and stage 1 through stage 4 chronic kidney disease, or unspecified chronic kidney disease; Z95.828 Presence of other vascular implants and grafts; E66.9 Obesity, unspecified; I25.5 Ischemic cardiomyopathy; N17.9 Acute kidney failure, unspecified; J98.01 Acute bronchospasm; Z95.810 Presence of automatic (implantable) cardiac defibrillator; Z95.1 Presence of aortocoronary bypass graft
CPT/HCPCS: 71010; 71020; 71045; 71046; 80048; 80053; 80061; 80069; 82550; 83520; 83880; 84484; 85025; 85610; 85730; 87070; 87205; 93005; 93306; 94640; 94664; 94665; 97110; 97116; 97161; J1940; J2920